=== PATIENT | female | born 2000 | race Caucasian/White ===

== ENCOUNTER 2022-05-24 00:48 | Day surgery (SDC) | payer BC, SELFPAY ==
[2022-05-17 14:17] VITALS: BMI 27.6
--- NOTE | 2022-05-17 14:22 | PC.NURSE ---
Report to the Outpatient Waiting Room, entrance under the green pavilion located off [facility], at time _0615_ on date _05/24/22_. Planned Procedure Time: _0815_. Time changes happen often and if your time is changed the preop area will call you the afternoon before. - You and your visitor will be asked to self-screen and do not enter if you have any COVID symptoms. - We encourage only one visitor and NO visitors under age 16 are allowed at this time. Your visitor will receive communication by the phone number that is given day of service. - The patient visitor is requested to social distance or may leave the building when not with patient due to restrictions. - A mask is required within the hospital. Patients may have clear liquids (water, carbonated beverages, clear teas, apple juice) until 3 hours prior to surgery with a maximum of 20 ounces. - No food from midnight until time of surgery - Infants may have breast milk until 4 hours before surgery, infant formula 6 hours prior to surgery. - Children will be allowed to drink immediately following surgery. If applicable, please bring a bottle or sippy cup to assist with drinking. Juice, water, soda, and popsicles are readily available. For infants on formula, please bring formula the day of surgery. Pacifiers are allowed. Take the following medications with a SIP of water the morning of surgery: NONE Medications to discontinue per physician NONE Date to take last dose Please no make-up, nail slovenian, hairspray, perfume, deodorant, or body powder the day of surgery. No jewelry (including any body piercings) or valuables the day of surgery, leave them at home. Please take a shower or bath the night before, or the morning of, surgery with an antibacterial soap. Wear comfortable, loose fitting clothing. Children are encouraged to wear pajamas. - Jewelry must be removed prior to entering the operating room. Rings and piercings that are not removed may be cut off. - The hospital will not accept responsibility for valuables. - Please leave all valuables, including medications, at home the day of surgery. If you are going home after surgery, a licensed test driver must drive you home. - NO public transportation without another adult. - We recommend that an adult stay with you for 24 hours following discharge. - We also recommend that you do not drive, make important decision, drink alcoholic beverages, or take any drugs that were not prescribed by your health care provider for at least 24 hours after your discharge time. For Pediatric surgeries, we recommend two adults accompany the child home. Follow any additional instructions given to you from your surgeon. If you or anyone in your household have experienced Covid symptoms in the past week, please notify your surgeon or the nurse liaison at the phone number below for possible testing. Telephone instructions given to _PATIENT__and asked if any additional questions and then verbalized understanding. Patient advised to call surgeon office or pre surgery nurse liaison [phone] if any additional questions.
--- NOTE | 2022-05-21 16:30 | PM.IMHP ---
H&P: HPI History of Present Illness Date/Time: 05/21/22 16:30 Chief Complaint: Recurrent tonsillitis recurrent adenoiditis tonsil stones halitosis Narrative: planned surgical procedure Review of Systems Review of Systems: All systems reviewed & are unremarkable except as noted in HPI and below [facility] Social History Social History (Updated 04/15/22 @ 11:20 by Kassandra Romero [facility]) Smoking status: Current every day smoker Tobacco type: e-cigarettes/vaping Additional smoking assessment comments: 3 YRS Alcohol intake: current Alcohol use details: 2 PER MONTH Substance use: never Living arrangements: alone Meds Home Medications and Allergies Home Medications Medication Instructions Recorded Confirmed Type etonogestrel 68 mg subdermal 1 implant subdermal ONCE 05/17/22 05/17/22 History implant (Nexplanon) Allergies Allergy/AdvReac Type Severity Reaction Status Date / Time penicillin G Allergy Severe Unknown Verified 05/17/22 14:16 Exam Narrative: chronic appearing tonsils tonsil stones Assessment and Plan Assessment and plan (1) Recurrent tonsillitis: Code(s): J03.91 - Acute recurrent tonsillitis, unspecified Status: Acute Assessment and Plan: plan OR for tonsillectomy and adenoidectomy risks discussed including bleeding infection damage to surrounding structures need for further procedures postoperative bleeding 3-5% numbness pain of any structure coughing ear pain damage to any structure during the induction and maintenance of anesthesia. (2) Chronic adenoiditis: Code(s): J35.02 - Chronic adenoiditis Status: Acute
[2022-05-24] VITALS (10 sets, daily range): BP systolic 112–139; BP diastolic 60–82; PULSE 50–80; RESP 12–18; TEMP 36.3–36.7; O2SAT 10–100
--- NOTE | 2022-05-24 07:13 | WPDHPUPDATE1 ---
History and Physical Update Update Date/Time: 05/24/22 07:13 History and Physical has been reviewed, including an updated exam of the patient. There are NO changes in the patient's condition. Risks, benefits, and alternatives have been discussed and questions answered. Patient agrees to proceed with procedure.
[2022-05-24] MEDS: ACETAMINOPHEN 500 MG TABLET 1000 MG PO (08:48)
[2022-05-24] MEDS: LACTATED RINGERS 1,000 ML 30 ML IV CONT (08:53)
--- NOTE | 2022-05-24 09:15 | WPDANESEPPF ---
Anes - Initial Pre Proc Eval Procedure: Operation Date: 05/24/22 10:30 Proposed Procedures p Tonsillectomy And Adenoidectomy - Asim Wheeler MD Date/Time: 05/24/22 09:15 Surgeon: Asim Wheeler MD Pre Op Diagnosis: chronic tonsillitis Patient Data Age: 21 Gender: F Height: 1.7 m Weight: 84.7 kg Last Vital Signs Temp 36.3 C L 05/24/22 08:33 Pulse 65 05/24/22 08:33 Resp 14 05/24/22 08:33 BP 124/64 05/24/22 08:33 Pulse Ox 99 05/24/22 08:33 O2 Del Method Room Air 05/24/22 08:33 Allergies Allergy/AdvReac Type Severity Reaction Status Date / Time penicillin G Allergy Severe Unknown Verified 05/17/22 14:16 Home Medications Medication Instructions Recorded Confirmed Type etonogestrel 68 mg subdermal 1 implant subdermal ONCE 05/17/22 05/17/22 History implant (Nexplanon) Patient hx anesthesia problems: none Family hx anesthesia problems: none Results Review: All pre-operative results and documents have been reviewed as part of the pre-operative evaluation. [facility] Social History Social History Smoking status: Current every day smoker Tobacco type: e-cigarettes/vaping Additional smoking assessment comments: 3 YRS Alcohol intake: current Alcohol use details: 2 PER MONTH Substance use: never Living arrangements: alone Anes - Eval Final PreProcedure Day of Procedure 05/24/22 09:15 Patient weight: overweight Heart: regular rate and rhythm Lungs: clear to auscultation Airway: Mallampati scale class II Neurological: alert and oriented Last oral intake: >/= 8 hours ASA classification: II Emergent: no Anesthetic plan: proceed Anesthesia type and monitoring: general ETT and standard monitoring Results Review: All pre-operative results and documents have been reviewed as part of the pre-operative evaluation. Informed Consent: The patient's anesthetic plan and its attendant risks and benefits were discussed with the patient/family/POA. Questions were solicited and answers provided to the satisfaction of the patient/family/POA.
--- NOTE | 2022-05-24 11:13 | W.PM.PROC2 ---
Procedure Note - Detailed Date of Procedure 05/24/22 Pre-op Diagnosis chronic tonsillitis , chronic adenoiditis Post-op Diagnosis Same Procedure Performed tonsillectomy adenoidectomy Surgeon Asim Wheeler MD Anesthesia General Indications see above Findings 2+ tonsils 2+ adenoids minimal bleeding Description of Procedure patient identified consent verified. Patient brought operating. Time-out performed. General anesthesia induced endotracheal tube secured airway. Patient prepped draped position 2nd time-out performed. McIvor mouth gag inserted to remove tonsils described above. They were removed using Bovie electrocautery at a setting of 10. Any bleeding was controlled with Bovie suction electrocautery setting of 12. This was a bilateral procedure with the same findings. In between tonsils the McIvor mouth gag was lowered and reopened. Following tonsillectomy the McIvor mouth gag was lowered reopened to reveal no bleeding. Red rubber catheters were then inserted transnasally and suspended anteriorly suspending the soft palate anteriorly. Adenoids reviewed with Vinh and described above. Bovie suction electrocautery at a setting of 30 was utilized to remove the adenoid pad. No bleeding was noted. Red rubber catheters and removed. McIvor mouthgag once again lowered and reopened to reveal no bleeding. Hemostasis was excellent. Total blood loss 15 cc. I performed all dictated portions of the procedure. No complications. Care the patient given Anesthesiology. Patient taken to PACU. Estimated Blood Loss 15 Drains No Packing No Pathology Yes Complications No immediate complications Condition Stable Disposition PACU
[2022-05-24] MEDS: fentaNYL CITRATE INJ (*CRX) 100 MCG/2 ML VIAL 25 MCG IV PUSH ×4 (11:31→12:10)
[2022-05-24] MEDS: oxyCODONE HCL (*CRX) 5 MG TAB IR PO (12:35)
== END 2022-05-24 13:26 | disposition home or self-care (01) ==
PROVIDERS: Visit Provider Otolaryngology
PROC: (CPT 42821; principal; 2022-05-24 10:30)
DX: J35.03 Chronic tonsillitis and adenoiditis (principal); F17.290 Nicotine dependence, other tobacco product, uncomplicated
CPT/HCPCS: 42821; 88302; A9270; J0330; J1100; J2250; J2405; J2704; J3010; J7120